=== PATIENT | male | born 1945 | race Caucasian/White ===

== ENCOUNTER 2018-01-23 06:14 | Inpatient (IN) | payer MEDICARE ==
[~2018-01-23] VITALS: Ht 172.7 cm; Wt 51.2 kg
[~2018-01-23 06:14] MED LIST: ADLT ASA LOW81 MG PO; ADVIL200 MG PO; CO Q-10200 M1 PO; DULERA1 AE1 IN; LORTAB 7.57.5 MG PO; LOSARTAN POT50 MG PO; Levaquin PO; MAG-OXIDE400 MG PO; PRAVASTATIN SOD20 MG PO; PRILOSEC40 MG PO; STERAPRED DS10 MG PO; TAMOXIFEN CITRA10 MG PO
[2018-01-23 07:17] LABS: HEMATOCRIT 36.6 % (39.0-50.0); HEMOGLOBIN 11.6 g/dl (14.0-18.0); IMMATURE GRANULOCYTES 1.4 % (0.0-1.0); MEAN CORPUSCULAR HGB 27.9 pG CALC (26.0-32.0); MEAN CORPUSCULAR HGB CONC 31.7 g/L CALC (32.0-36.0); NEUT# 17.47 thou/uL (1.82-7.42); RED BLOOD COUNT 4.16 mill/uL (4.70-6.10); RED CELL DISTRI WIDTH 15.3 % (11.5-15.5)
[2018-01-23 07:38] LABS: ALBUMIN 3.8 g/dL (3.2-5.0); ALKALINE PHOSPHATASE 61 u/l (38-126); ANION GAP 19 (6-22 (CALC)); BILIRUBIN, TOTAL 0.8 mg/dL (0.0-1.4); BUN 12 mg/dL (8-23); BUN/CREATININE RATIO 18 (12-20 (CALC)); CARBON DIOXIDE 26 mmol/l (22-30); CHLORIDE 92 mmol/l (95-108); CREATININE 0.6 mg/dL (0.7-1.3); GFR > 60 ML/MIN (>=60 (CALC)); GFR FOR AFR.AMER. > 60 ML/MIN (>=60 (CALC)); POTASSIUM 4.9 mmol/l (3.5-5.1); SGOT/AST 27 u/l (19-48); SGPT/ALT 34 u/l (11-66); SODIUM 132 mmol/l (137-146); TOTAL PROTEIN 6.9 g/dL (6.3-8.2)
[2018-01-23 07:50] LABS: MYOGLOBIN 86 ng/mL (0 - 121)
[2018-01-23 07:57] LABS: URINE BILIRUBIN - DIPSTICK NEGATIVE (NEGATIVE); URINE BLOOD DIPSTICK NEGATIVE (NEGATIVE); URINE COLOR YELLOW; URINE GLUCOSE - DIPSTICK NEGATIVE (NEGATIVE); URINE KETONE TRACE mg/dL (NEGATIVE); URINE LEUK ESTERASE NEGATIVE (NEGATIVE); URINE NITRITE - DIPSTICK NEGATIVE (Negative); URINE PH 7.5 (4.5-8.0); URINE PROTEIN - DIPSTICK NEGATIVE (NEG-TRACE); URINE UROBILINOGEN - DIPSTICK 0.2 E.U./dL (0.2)
[2018-01-23 07:59] LABS: URINE CLARITY CLEAR
[2018-01-23 08:02] LABS: INFLUENZA A NONE DETECTED (NONE DETECT); INFLUENZA B NONE DETECTED (NONE DETECT)
[2018-01-23 09:17] VITALS: BP 106/70
[2018-01-23 11:00] VITALS: BP 100/65
[2018-01-23 16:30] VITALS: BP 100/66
[2018-01-23 19:37] VITALS: BP 114/71
[2018-01-24 00:02] VITALS: BP 118/66
[2018-01-24 04:30] VITALS: BP 112/66
[2018-01-24 05:29] LABS: HEMATOCRIT 34.1 % (39.0-50.0); HEMOGLOBIN 10.9 g/dl (14.0-18.0); IMMATURE GRANULOCYTES 1.2 % (0.0-1.0); MEAN CELL VOLUME 88.3 fL CALC (80.0-100.0); MEAN CORPUSCULAR HGB 28.2 pG CALC (26.0-32.0); NEUT# 16.41 thou/uL (1.82-7.42); RED BLOOD COUNT 3.86 mill/uL (4.70-6.10); RED CELL DISTRI WIDTH 15.4 % (11.5-15.5)
[2018-01-24 05:38] LABS: ANION GAP 15 (6-22 (CALC)); BUN 12 mg/dL (8-23); BUN/CREATININE RATIO 21 (12-20 (CALC)); CARBON DIOXIDE 27 mmol/l (22-30); CHLORIDE 98 mmol/l (95-108); CREATININE 0.6 mg/dL (0.7-1.3); GFR > 60 ML/MIN (>=60 (CALC)); GFR FOR AFR.AMER. > 60 ML/MIN (>=60 (CALC)); MAGNESIUM 1.9 mg/dL (1.6-2.3); POTASSIUM 4.7 mmol/l (3.5-5.1); SODIUM 135 mmol/l (137-146)
[2018-01-24 08:11] VITALS: BP 97/64
[2018-01-24 11:00] VITALS: BP 103/64
[2018-01-24 16:36] VITALS: BP 110/50
[2018-01-24 19:25] VITALS: BP 100/61
[2018-01-25 00:15] VITALS: BP 100/69
[2018-01-25 00:20] VITALS: BP 100/69
[2018-01-25 04:44] VITALS: BP 113/72
[2018-01-25 07:53] LABS: ANION GAP 12 (6-22 (CALC)); BUN 14 mg/dL (8-23); BUN/CREATININE RATIO 26 (12-20 (CALC)); CARBON DIOXIDE 30 mmol/l (22-30); CHLORIDE 99 mmol/l (95-108); CREATININE 0.5 mg/dL (0.7-1.3); GFR > 60 ML/MIN (>=60 (CALC)); GFR FOR AFR.AMER. > 60 ML/MIN (>=60 (CALC)); POTASSIUM 4.3 mmol/l (3.5-5.1); SODIUM 137 mmol/l (137-146)
[2018-01-25 07:59] LABS: HEMATOCRIT 33.9 % (39.0-50.0); HEMOGLOBIN 10.7 g/dl (14.0-18.0); MEAN CORPUSCULAR HGB 28.1 pG CALC (26.0-32.0); MEAN CORPUSCULAR HGB CONC 31.6 g/L CALC (32.0-36.0); RED BLOOD COUNT 3.81 mill/uL (4.70-6.10); RED CELL DISTRI WIDTH 15.4 % (11.5-15.5)
[2018-01-25 08:00] VITALS: BP 111/67
[2018-01-25 11:09] VITALS: BP 100/63
[2018-01-25] MEDS ORDERED: FLORASTOR250 M1 PO (12:38)
[2018-01-25] MEDS ORDERED: AUGMENTIN500TAB PO (12:38)
[2018-01-25] MEDS ORDERED: DOXYCYCL HYC100 MG PO (12:38)
[2018-01-25] MEDS ORDERED: PREDNISONE10 MG PO (12:38)
[2018-01-25] MEDS ORDERED: LIBRIUM25 M1 PO (12:43)
== END 2018-01-25 13:26 | disposition home or self-care (01) | DRG 190 ==
LOC: ED 06:14 → ED-I 08:16 → ED 08:26 → MS2 08:27 → UNDODEPER 09:05 → MS2 01-25 13:26
PROVIDERS: Emergency Medicine; Family Medicine; Nurse Practitioner Family; ADMIT Internal Medicine; ATTEND Internal Medicine
DX: J44.1 Chronic obstructive pulmonary disease with (acute) exacerbation (principal); J18.9 Pneumonia, unspecified organism; E46 Unspecified protein-calorie malnutrition; R64 Cachexia; Z99.81 Dependence on supplemental oxygen; E87.1 Hypo-osmolality and hyponatremia; Z68.1 Body mass index [BMI] 19.9 or less, adult; J44.0 Chronic obstructive pulmonary disease with (acute) lower respiratory infection; I10 Essential (primary) hypertension; E78.5 Hyperlipidemia, unspecified; G89.4 Chronic pain syndrome; F10.10 Alcohol abuse, uncomplicated; R45.1 Restlessness and agitation; Z90.11 Acquired absence of right breast and nipple; Z85.3 Personal history of malignant neoplasm of breast; Z87.891 Personal history of nicotine dependence

== ENCOUNTER 2018-03-25 10:09 | Observation (INO) | payer MEDICARE ==
[~2018-03-25] VITALS: Ht 172.7 cm; Wt 48.0 kg
[~2018-03-25 10:09] MED LIST changes: +AUGMENTIN500TAB PO; +DOXYCYCL HYC100 MG PO; +FLORASTOR250 M1 PO; +LIBRIUM25 M1 PO; +PREDNISONE10 MG PO
[2018-03-25 10:56] LABS: HEMATOCRIT 37.5 % (39.0-50.0); HEMOGLOBIN 11.4 g/dl (14.0-18.0); IMMATURE GRANULOCYTES 0.4 % (0.0-1.0); MEAN CELL VOLUME 84.3 fL CALC (80.0-100.0); MEAN CORPUSCULAR HGB 25.6 pG CALC (26.0-32.0); MEAN CORPUSCULAR HGB CONC 30.4 g/L CALC (32.0-36.0); NEUT# 14.11 thou/uL (1.82-7.42); RED BLOOD COUNT 4.45 mill/uL (4.70-6.10); RED CELL DISTRI WIDTH 16.1 % (11.5-15.5)
[2018-03-25 11:26] LABS: ALKALINE PHOSPHATASE 61 u/l (38-126); AMYLASE 158 u/l (30-110); ANION GAP 14 (6-22 (CALC)); BILIRUBIN, TOTAL 0.7 mg/dL (0.0-1.4); BUN 13 mg/dL (8-23); BUN/CREATININE RATIO 23 (12-20 (CALC)); CARBON DIOXIDE 28 mmol/l (22-30); CHLORIDE 94 mmol/l (95-108); CREATININE 0.6 mg/dL (0.7-1.3); GFR > 60 ML/MIN (>=60 (CALC)); GFR FOR AFR.AMER. > 60 ML/MIN (>=60 (CALC)); LIPASE 99 u/l (23-300); POTASSIUM 4.7 mmol/l (3.5-5.1); SGPT/ALT 34 u/l (11-66); SODIUM 131 mmol/l (137-146)
[2018-03-25 11:31] LABS: ACT PARTIAL THROMBO TIME 24.3 SECONDS (20.0-32.5); D-DIMER 0.79 mg/L (0.19-0.60); INTERNATIONAL NORMALIZED RATIO 0.9 RATIO (0.7-1.3); PROTHROMBIN TIME 10.1 SECONDS (9.0-12.5)
[2018-03-25 11:38] LABS: MYOGLOBIN 73 ng/mL (0 - 121)
[2018-03-25 11:45] LABS: ALBUMIN 4.7 g/dL (3.2-5.0); SGOT/AST 54 u/l (19-48); TOTAL PROTEIN 8.8 g/dL (6.3-8.2)
[2018-03-25 15:43] LABS: URINE BILIRUBIN - DIPSTICK NEGATIVE (NEGATIVE); URINE BLOOD DIPSTICK NEGATIVE (NEGATIVE); URINE COLOR YELLOW; URINE GLUCOSE - DIPSTICK NEGATIVE (NEGATIVE); URINE KETONE NEGATIVE (NEGATIVE); URINE LEUK ESTERASE NEGATIVE (NEGATIVE); URINE NITRITE - DIPSTICK NEGATIVE (Negative); URINE PROTEIN - DIPSTICK NEGATIVE (NEG-TRACE); URINE SPECIFIC GRAVITY <=1.005; URINE UROBILINOGEN - DIPSTICK 0.2 E.U./dL (0.2)
[2018-03-25 15:44] LABS: URINE CLARITY CLEAR
[2018-03-25 15:54] VITALS: BP 136/79
[2018-03-25] MEDS ORDERED: ARNUITY EL200 MCG/AC IN (16:44)
[2018-03-25] MEDS ORDERED: BREO ELLIPTA1 INH PO (16:46)
[2018-03-25] MEDS ORDERED: XOPENEX HF45 MCG/ACT PO (16:47)
[2018-03-25 19:30] VITALS: BP 111/67
[2018-03-26] VITALS (7 sets, daily range): BP systolic 79–115; BP diastolic 53–71
[2018-03-26 05:25] LABS: HEMATOCRIT 34.7 % (39.0-50.0); HEMOGLOBIN 10.8 g/dl (14.0-18.0); IMMATURE GRANULOCYTES 0.6 % (0.0-1.0); MEAN CELL VOLUME 82.8 fL CALC (80.0-100.0); MEAN CORPUSCULAR HGB 25.8 pG CALC (26.0-32.0); MEAN CORPUSCULAR HGB CONC 31.1 g/L CALC (32.0-36.0); NEUT# 5.78 thou/uL (1.82-7.42); RED BLOOD COUNT 4.19 mill/uL (4.70-6.10); RED CELL DISTRI WIDTH 15.8 % (11.5-15.5)
[2018-03-26 05:36] LABS: ANION GAP 10 (6-22 (CALC)); BUN 12 mg/dL (8-23); BUN/CREATININE RATIO 25 (12-20 (CALC)); CARBON DIOXIDE 30 mmol/l (22-30); CHLORIDE 95 mmol/l (95-108); CREATININE 0.5 mg/dL (0.7-1.3); GFR > 60 ML/MIN (>=60 (CALC)); GFR FOR AFR.AMER. > 60 ML/MIN (>=60 (CALC)); MAGNESIUM 1.7 mg/dL (1.6-2.3); SODIUM 130 mmol/l (137-146)
[2018-03-27 04:29] VITALS: BP 98/64
[2018-03-27 05:32] LABS: HEMATOCRIT 32.9 % (39.0-50.0); HEMOGLOBIN 10.3 g/dl (14.0-18.0); IMMATURE GRANULOCYTES 0.5 % (0.0-1.0); MEAN CELL VOLUME 83.1 fL CALC (80.0-100.0); MEAN CORPUSCULAR HGB CONC 31.3 g/L CALC (32.0-36.0); NEUT# 9.03 thou/uL (1.82-7.42); RED BLOOD COUNT 3.96 mill/uL (4.70-6.10); RED CELL DISTRI WIDTH 15.8 % (11.5-15.5)
[2018-03-27 05:44] LABS: ANION GAP 11 (6-22 (CALC)); BUN 12 mg/dL (8-23); BUN/CREATININE RATIO 25 (12-20 (CALC)); CARBON DIOXIDE 30 mmol/l (22-30); CHLORIDE 95 mmol/l (95-108); CREATININE 0.5 mg/dL (0.7-1.3); GFR > 60 ML/MIN (>=60 (CALC)); GFR FOR AFR.AMER. > 60 ML/MIN (>=60 (CALC)); MAGNESIUM 1.6 mg/dL (1.6-2.3); POTASSIUM 4.5 mmol/l (3.5-5.1); SODIUM 132 mmol/l (137-146)
[2018-03-27 07:58] VITALS: BP 122/60
[2018-03-27 11:58] VITALS: BP 185/85
[2018-03-27] MEDS ORDERED: PREDNISONE10 MG PO (12:37)
[2018-03-27] MEDS ORDERED: LEXAPRO10 MG PO (12:37)
[2018-03-27] MEDS ORDERED: Levaquin PO (12:37)
== END 2018-03-27 14:06 | disposition home or self-care (01) ==
LOC: ED 10:09 → ED-I 13:07 → ED 13:31 → MS2 13:32
PROVIDERS: Nurse Practitioner Family; ADMIT Internal Medicine; ATTEND Internal Medicine
DX: J44.1 Chronic obstructive pulmonary disease with (acute) exacerbation (principal); R07.9 Chest pain, unspecified; Z68.1 Body mass index [BMI] 19.9 or less, adult; I10 Essential (primary) hypertension; E78.5 Hyperlipidemia, unspecified; G89.4 Chronic pain syndrome; F43.21 Adjustment disorder with depressed mood; M62.59 Muscle wasting and atrophy, not elsewhere classified, multiple sites; F10.10 Alcohol abuse, uncomplicated; E87.1 Hypo-osmolality and hyponatremia; R63.4 Abnormal weight loss; R07.2 Precordial pain; Z85.3 Personal history of malignant neoplasm of breast; Z99.81 Dependence on supplemental oxygen; Z63.4 Disappearance and death of family member
CPT/HCPCS: Q9967

== ENCOUNTER → 2018-07-10 | Outpatient (REF) | payer MEDICARE ==
[~2018-07-10] MED LIST changes: +ACIDOPHILUS1 CAP PO; +AMIODARONE200 MG PO; +ARNUITY EL200 MCG/AC IN; +ASPIRIN ADULT L81 MG PO; +BACTRIM DS1 TAB PO; +BREO ELLIPTA1 INH PO; +DIGOXIN0.125 MG PO; +LEXAPRO10 MG PO; +LIPITOR20 M1 PO; +MAGNESIUM400 MG PO; +PRAMIPEXOLE0.25 MG PO; +PRILOSEC20 MG/CAP PO; +VIBRAMYCIN100 M2 PO; +XOPENEX HF45 MCG/ACT PO
== END | disposition home or self-care (01) ==
LOC: LABSPEC 13:50
PROVIDERS: ATTEND Internal Medicine Critical Care Medicine
DX: R05 Cough (principal)

== ENCOUNTER → 2018-07-11 | Outpatient (REF) | payer MEDICARE | END | disposition home or self-care (01) | LOC: LABSPEC 11:05 | PROVIDERS: ATTEND Internal Medicine Critical Care Medicine | DX: R05 Cough (principal) ==

== ENCOUNTER → 2018-07-12 | Outpatient (REF) | payer MEDICARE | END | disposition home or self-care (01) | LOC: CT 10:33 | PROVIDERS: ATTEND Internal Medicine Critical Care Medicine | DX: J44.0 Chronic obstructive pulmonary disease with (acute) lower respiratory infection (principal); R05 Cough; R06.00 Dyspnea, unspecified ==

== ENCOUNTER → 2018-07-17 | Outpatient (REF) | payer MEDICARE | END | disposition home or self-care (01) | LOC: LABSPEC 11:28 | PROVIDERS: ATTEND Internal Medicine | DX: Z51.81 Encounter for therapeutic drug level monitoring (principal); Z79.899 Other long term (current) drug therapy ==

== ENCOUNTER 2018-10-09 20:08 | Emergency (ER) | payer MEDICARE ==
[~2018-10-09] VITALS: Ht 172.7 cm; Wt 54.0 kg
[2018-10-09 20:48] LABS: IMMATURE GRANULOCYTES 0.4 % (0.0-5.0); MEAN CORPUSCULAR HGB 21.6 pG CALC (26.0-32.0); MEAN CORPUSCULAR HGB CONC 27.3 g/L CALC (32.0-36.0); NEUT# 8.95 thou/uL (1.82-7.42); RED BLOOD COUNT 3.28 mill/uL (4.70-6.10); RED CELL DISTRI WIDTH 16.2 % (11.5-15.5)
[2018-10-09 20:54] LABS: HEMOGLOBIN 7.1 g/dl (14.0-18.0); MEAN CELL VOLUME 79.3 fL CALC (80.0-100.0)
[2018-10-09 20:59] LABS: ALBUMIN 3.8 g/dL (3.2-5.0); ALKALINE PHOSPHATASE 54 u/l (38-126); ANION GAP 13 (6-22 (CALC)); BILIRUBIN, TOTAL 0.3 mg/dL (0.0-1.4); BUN 24 mg/dL (8-23); BUN/CREATININE RATIO 33 (12-20 (CALC)); CARBON DIOXIDE 33 mmol/l (22-30); CHLORIDE 97 mmol/l (95-108); CREATININE 0.7 mg/dL (0.7-1.3); GFR > 60 ML/MIN (>=60 (CALC)); GFR FOR AFR.AMER. > 60 ML/MIN (>=60 (CALC)); SGOT/AST 37 u/l (19-48); SODIUM 138 mmol/l (137-146); TOTAL PROTEIN 6.3 g/dL (6.3-8.2)
[2018-10-09] MEDS ORDERED: PREDNISONE50 MG PO (22:00)
--- NOTE | 2018-10-09 22:07 | NUR ---
BREATHING TREATMENT GIVEN BACK TO BACK WITH MOUTH PEICE. BREATHING TECH. FOR GOOD DEPOSITION TO THE LUNGS.
[2018-10-09 22:46] VITALS: BP 135/56
[2018-10-10] MEDS ORDERED: ALBUTEROL SUL0.083 % IN (09:48)
[2018-10-10] MEDS ORDERED: BREO ELLIPTA1 INH IN (09:49)
== END 2018-10-09 22:46 | disposition home or self-care (01) ==
LOC: ED 20:08
PROVIDERS: Family Medicine
DX: J44.1 Chronic obstructive pulmonary disease with (acute) exacerbation (principal); R06.02 Shortness of breath; I10 Essential (primary) hypertension

== ENCOUNTER 2018-12-01 20:17 | Emergency (ER) | payer MEDICARE ==
[~2018-12-01] VITALS: Ht 172.7 cm; Wt 52.0 kg
[~2018-12-01 20:17] MED LIST changes: +ALBUTEROL SUL0.083 % IN; +BREO ELLIPTA1 INH IN; +PREDNISONE50 MG PO
[2018-12-01] MEDS ORDERED: MAPAP325 MG PO (20:35)
[2018-12-01] MEDS ORDERED: TUSSIN AC PO (20:37)
[2018-12-01] MEDS ORDERED: CLONAZEPAM0.5 M1 PO (20:37)
[2018-12-01] MEDS ORDERED: SENNA-S1 TAB PO (20:38)
[2018-12-01] MEDS ORDERED: MORPHINE S20 MG/5 M1 PO (20:42)
[2018-12-01 20:50] LABS: HEMATOCRIT 29.9 % (39.0-50.0); HEMOGLOBIN 8.4 g/dl (14.0-18.0); IMMATURE GRANULOCYTES 0.9 % (0.0-5.0); MEAN CORPUSCULAR HGB 23.7 pG CALC (26.0-32.0); MEAN CORPUSCULAR HGB CONC 28.1 g/L CALC (32.0-36.0); NEUT# 10.45 thou/uL (1.82-7.42); RED BLOOD COUNT 3.54 mill/uL (4.70-6.10); RED CELL DISTRI WIDTH 20.4 % (11.5-15.5)
[2018-12-01 20:51] LABS: MEAN CELL VOLUME 84.5 fL CALC (80.0-100.0)
[2018-12-01 21:02] LABS: ALBUMIN 3.3 g/dL (3.2-5.0); ALKALINE PHOSPHATASE 62 u/l (38-126); ANION GAP 11 (6-22 (CALC)); BILIRUBIN, TOTAL 0.3 mg/dL (0.0-1.4); BUN 18 mg/dL (8-23); BUN/CREATININE RATIO 28 (12-20 (CALC)); CARBON DIOXIDE 33 mmol/l (22-30); CHLORIDE 96 mmol/l (95-108); CREATININE 0.6 mg/dL (0.7-1.3); GFR > 60 ML/MIN (>=60 (CALC)); GFR FOR AFR.AMER. > 60 ML/MIN (>=60 (CALC)); INTERNATIONAL NORMALIZED RATIO 0.9 RATIO (0.7-1.3); POTASSIUM 4.6 mmol/l (3.5-5.1); PROTHROMBIN TIME 9.9 SECONDS (9.0-12.5); SGOT/AST 23 u/l (19-48); SODIUM 136 mmol/l (137-146); TOTAL PROTEIN 5.7 g/dL (6.3-8.2)
[2018-12-01 21:38] LABS: URINE BILIRUBIN - DIPSTICK NEGATIVE (NEGATIVE); URINE BLOOD DIPSTICK NEGATIVE (NEGATIVE); URINE COLOR YELLOW; URINE GLUCOSE - DIPSTICK NEGATIVE (NEGATIVE); URINE KETONE NEGATIVE (NEGATIVE); URINE LEUK ESTERASE NEGATIVE (NEGATIVE); URINE NITRITE - DIPSTICK NEGATIVE (Negative); URINE PROTEIN - DIPSTICK NEGATIVE (NEG-TRACE); URINE SPECIFIC GRAVITY 1.025; URINE UROBILINOGEN - DIPSTICK 0.2 E.U./dL (0.2)
[2018-12-01] MEDS ORDERED: DUONEB IN (21:40)
[2018-12-01] MEDS ORDERED: SYMBICORT1 AE1 IN (21:42)
[2018-12-01] MEDS ORDERED: ESCITALOPRAM OXA5 MG PO (21:45)
[2018-12-01] MEDS ORDERED: TAMOXIFEN CITRA20 MG PO (21:47)
[2018-12-01] MEDS ORDERED: PREDNISONE20 MG PO (21:48)
[2018-12-01] MEDS ORDERED: CORDARONE/200 MG/TAB PO (21:49)
[2018-12-01] MEDS ORDERED: AMIODARONE HCL200 MG PO (21:51)
[2018-12-01] MEDS ORDERED: PROCHLORPERAZIN10 MG PO (21:54)
[2018-12-01 22:38] VITALS: BP 157/70
== END 2018-12-01 22:38 | disposition short-term general hospital (02) ==
LOC: ED 20:17
PROVIDERS: Emergency Medicine
DX: S72.012A Unspecified intracapsular fracture of left femur, initial encounter for closed fracture (principal); D64.9 Anemia, unspecified; I10 Essential (primary) hypertension; J44.9 Chronic obstructive pulmonary disease, unspecified; M19.90 Unspecified osteoarthritis, unspecified site; W01.0XXA Fall on same level from slipping, tripping and stumbling without subsequent striking against object, initial encounter; Y92.009 Unspecified place in unspecified non-institutional (private) residence as the place of occurrence of the external cause; Z99.81 Dependence on supplemental oxygen

== ENCOUNTER 2018-12-28 23:50 | Emergency (ER) | payer MEDICARE ==
[~2018-12-28] VITALS: Ht 172.7 cm; Wt 53.0 kg
[~2018-12-28 23:50] MED LIST changes: +AMIODARONE HCL200 MG PO; +CLONAZEPAM0.5 M1 PO; +CORDARONE/200 MG/TAB PO; +DUONEB IN; +ESCITALOPRAM OXA5 MG PO; +MAPAP325 MG PO; +MORPHINE S20 MG/5 M1 PO; +PREDNISONE20 MG PO; +PROCHLORPERAZIN10 MG PO; +SENNA-S1 TAB PO; +SYMBICORT1 AE1 IN; +TAMOXIFEN CITRA20 MG PO; +TUSSIN AC PO
[2018-12-29 00:40] LABS: HEMATOCRIT 29.2 % (39.0-50.0); HEMOGLOBIN 8.5 g/dl (14.0-18.0); IMMATURE GRANULOCYTES 3.6 % (0.0-5.0); MEAN CELL VOLUME 83.9 fL CALC (80.0-100.0); MEAN CORPUSCULAR HGB 24.4 pG CALC (26.0-32.0); MEAN CORPUSCULAR HGB CONC 29.1 g/L CALC (32.0-36.0); NEUT# 12.4 thou/uL (1.82-7.42); RED BLOOD COUNT 3.48 mill/uL (4.70-6.10); RED CELL DISTRI WIDTH 18.6 % (11.5-15.5)
[2018-12-29 00:57] LABS: URINE BILIRUBIN - DIPSTICK NEGATIVE (NEGATIVE); URINE BLOOD DIPSTICK NEGATIVE (NEGATIVE); URINE COLOR YELLOW; URINE GLUCOSE - DIPSTICK NEGATIVE (NEGATIVE); URINE KETONE NEGATIVE (NEGATIVE); URINE LEUK ESTERASE NEGATIVE (NEGATIVE); URINE NITRITE - DIPSTICK NEGATIVE (Negative); URINE PROTEIN - DIPSTICK NEGATIVE (NEG-TRACE); URINE SPECIFIC GRAVITY <=1.005; URINE UROBILINOGEN - DIPSTICK 0.2 E.U./dL (0.2)
[2018-12-29 00:59] LABS: ACT PARTIAL THROMBO TIME 25.6 SECONDS (20.0-32.5); PROTHROMBIN TIME 10.2 SECONDS (9.0-12.5)
[2018-12-29 01:05] LABS: ALBUMIN 3.3 g/dL (3.2-5.0); ALKALINE PHOSPHATASE 92 u/l (38-126); BILIRUBIN, TOTAL 0.6 mg/dL (0.0-1.4); BUN 11 mg/dL (8-23); BUN/CREATININE RATIO 17 (12-20 (CALC)); CARBON DIOXIDE 28 mmol/l (22-30); CHLORIDE 90 mmol/l (95-108); CREATININE 0.7 mg/dL (0.7-1.3); GFR > 60 ML/MIN (>=60 (CALC)); GFR FOR AFR.AMER. > 60 ML/MIN (>=60 (CALC)); POTASSIUM 4.6 mmol/l (3.5-5.1)
[2018-12-29 01:15] LABS: ANION GAP 16 (6-22 (CALC)); SGOT/AST 47 u/l (19-48); SODIUM 129 mmol/l (137-146)
[2018-12-29 02:02] VITALS: BP 125/57
== END 2018-12-29 02:02 | disposition short-term general hospital (02) ==
LOC: ED 23:50
PROVIDERS: Emergency Medicine
DX: S79.002A Unspecified physeal fracture of upper end of left femur, initial encounter for closed fracture (principal); M97.02XA Periprosthetic fracture around internal prosthetic left hip joint, initial encounter; D64.9 Anemia, unspecified; E87.1 Hypo-osmolality and hyponatremia; I10 Essential (primary) hypertension; W19.XXXA Unspecified fall, initial encounter

== ENCOUNTER 2019-01-08 23:22 | Emergency (ER) | payer MEDICARE ==
[~2019-01-08] VITALS: Ht 172.7 cm; Wt 51.0 kg
[2019-01-09 00:02] LABS: HEMATOCRIT 25.4 % (39.0-50.0); HEMOGLOBIN 7.6 g/dl (14.0-18.0); MEAN CELL VOLUME 87.6 fL CALC (80.0-100.0); MEAN CORPUSCULAR HGB 26.2 pG CALC (26.0-32.0); MEAN CORPUSCULAR HGB CONC 29.9 g/L CALC (32.0-36.0); NEUT# 13.97 thou/uL (1.82-7.42); RED BLOOD COUNT 2.9 mill/uL (4.70-6.10); RED CELL DISTRI WIDTH 18.5 % (11.5-15.5)
[2019-01-09 00:08] LABS: ALKALINE PHOSPHATASE 88 u/l (38-126); ANION GAP 8 (6-22 (CALC)); BILIRUBIN, TOTAL 0.4 mg/dL (0.0-1.4); BUN 18 mg/dL (8-23); BUN/CREATININE RATIO 34 (12-20 (CALC)); CARBON DIOXIDE 30 mmol/l (22-30); CHLORIDE 99 mmol/l (95-108); CREATININE 0.5 mg/dL (0.7-1.3); GFR > 60 ML/MIN (>=60 (CALC)); GFR FOR AFR.AMER. > 60 ML/MIN (>=60 (CALC)); POTASSIUM 4.4 mmol/l (3.5-5.1); SGOT/AST 24 u/l (19-48); SODIUM 132 mmol/l (137-146)
[2019-01-09 00:09] LABS: ALBUMIN 2.4 g/dL (3.2-5.0); TOTAL PROTEIN 4.6 g/dL (6.3-8.2)
[2019-01-09 00:15] LABS: PROTHROMBIN TIME 10.6 SECONDS (9.0-12.5)
[2019-01-09] MEDS ORDERED: BREO ELLIPTA1 INH IN (01:34)
[2019-01-09] MEDS ORDERED: MULTIVITAMI9 PO (01:35)
[2019-01-09] MEDS ORDERED: D 10001000 UNIT PO (01:36)
[2019-01-09] MEDS ORDERED: PRILOSEC20 MG PO (01:36)
[2019-01-09] MEDS ORDERED: DELTASONE20 MG PO (01:38)
[2019-01-09] MEDS ORDERED: SPIRIVA RE1.25 MCG/A IN (01:39)
[2019-01-09] MEDS ORDERED: CALCIUM CITRAT950 MG PO (01:40)
[2019-01-09] MEDS ORDERED: KEFLEX500 MG PO (01:41)
[2019-01-09] MEDS ORDERED: MORPHINE SULFAT30 M1 PO (01:42)
[2019-01-09] MEDS ORDERED: NAPROXEN500 MG PO (01:43)
[2019-01-09 03:00] VITALS: BP 101/56
== END 2019-01-09 03:54 | disposition home or self-care (01) ==
LOC: ED 23:22
PROVIDERS: Emergency Medicine
DX: L76.22 Postprocedural hemorrhage of skin and subcutaneous tissue following other procedure (principal); I10 Essential (primary) hypertension; J44.9 Chronic obstructive pulmonary disease, unspecified; S72.92XD Unspecified fracture of left femur, subsequent encounter for closed fracture with routine healing; Y83.8 Other surgical procedures as the cause of abnormal reaction of the patient, or of later complication, without mention of misadventure at the time of the procedure; X58.XXXD Exposure to other specified factors, subsequent encounter; D72.829 Elevated white blood cell count, unspecified; T38.0X5A Adverse effect of glucocorticoids and synthetic analogues, initial encounter; D64.9 Anemia, unspecified

== ENCOUNTER 2019-01-12 09:54 | Observation (INO) | payer MEDICARE ==
[~2019-01-12] VITALS: Ht 166.4 cm; Wt 50.0 kg
[~2019-01-12 09:54] MED LIST changes: +CALCIUM CITRAT950 MG PO; +D 10001000 UNIT PO; +DELTASONE20 MG PO; +KEFLEX500 MG PO; +MORPHINE SULFAT30 M1 PO; +MULTIVITAMI9 PO; +NAPROXEN500 MG PO; +PRILOSEC20 MG PO; +SPIRIVA RE1.25 MCG/A IN
[2019-01-12] MEDS ORDERED: CITALOPRAM10 MG PO (10:30)
[2019-01-12 10:57] LABS: IMMATURE GRANULOCYTES 0.7 % (0.0-5.0); MEAN CELL VOLUME 86.8 fL CALC (80.0-100.0); MEAN CORPUSCULAR HGB CONC 31.1 g/L CALC (32.0-36.0); NEUT# 15.7 thou/uL (1.82-7.42); RED BLOOD COUNT 3.85 mill/uL (4.70-6.10); RED CELL DISTRI WIDTH 17.3 % (11.5-15.5)
[2019-01-12 10:58] LABS: HEMATOCRIT 33.4 % (39.0-50.0); HEMOGLOBIN 10.4 g/dl (14.0-18.0)
[2019-01-12 11:11] LABS: ANION GAP 12 (6-22 (CALC)); BUN 13 mg/dL (8-23); BUN/CREATININE RATIO 24 (12-20 (CALC)); CARBON DIOXIDE 30 mmol/l (22-30); CHLORIDE 91 mmol/l (95-108); CREATININE 0.5 mg/dL (0.7-1.3); GFR > 60 ML/MIN (>=60 (CALC)); GFR FOR AFR.AMER. > 60 ML/MIN (>=60 (CALC)); POTASSIUM 4.8 mmol/l (3.5-5.1); SODIUM 128 mmol/l (137-146)
[2019-01-12 13:27] VITALS: BP 141/58
[2019-01-12 15:15] VITALS: BP 93/52
[2019-01-12 16:29] VITALS: BP 107/60
[2019-01-12 16:30] LABS: URINE BILIRUBIN - DIPSTICK NEGATIVE (NEGATIVE); URINE BLOOD DIPSTICK NEGATIVE (NEGATIVE); URINE COLOR YELLOW; URINE GLUCOSE - DIPSTICK NEGATIVE (NEGATIVE); URINE KETONE NEGATIVE (NEGATIVE); URINE LEUK ESTERASE NEGATIVE (NEGATIVE); URINE NITRITE - DIPSTICK NEGATIVE (Negative); URINE PH 8.5 (4.5-8.0); URINE PROTEIN - DIPSTICK NEGATIVE (NEG-TRACE); URINE SPECIFIC GRAVITY 1.015; URINE UROBILINOGEN - DIPSTICK 0.2 E.U./dL (0.2)
[2019-01-12 19:15] VITALS: BP 107/86
[2019-01-13] VITALS (7 sets, daily range): BP systolic 90–157; BP diastolic 52–62
[2019-01-13 05:39] LABS: HEMATOCRIT 33.7 % (39.0-50.0); HEMOGLOBIN 9.8 g/dl (14.0-18.0); IMMATURE GRANULOCYTES 0.8 % (0.0-5.0); MEAN CELL VOLUME 90.1 fL CALC (80.0-100.0); MEAN CORPUSCULAR HGB 26.2 pG CALC (26.0-32.0); MEAN CORPUSCULAR HGB CONC 29.1 g/L CALC (32.0-36.0); NEUT# 17.69 thou/uL (1.82-7.42); RED BLOOD COUNT 3.74 mill/uL (4.70-6.10); RED CELL DISTRI WIDTH 17.4 % (11.5-15.5)
[2019-01-13 06:06] LABS: ALBUMIN 2.5 g/dL (3.2-5.0); ALKALINE PHOSPHATASE 70 u/l (38-126); AMYLASE 43 u/l (30-110); ANION GAP 12 (6-22 (CALC)); BILIRUBIN, TOTAL 0.6 mg/dL (0.0-1.4); BUN 13 mg/dL (8-23); BUN/CREATININE RATIO 28 (12-20 (CALC)); CARBON DIOXIDE 26 mmol/l (22-30); CHLORIDE 93 mmol/l (95-108); CREATININE 0.5 mg/dL (0.7-1.3); GFR > 60 ML/MIN (>=60 (CALC)); GFR FOR AFR.AMER. > 60 ML/MIN (>=60 (CALC)); LIPASE 24 u/l (23-300); MAGNESIUM 1.6 mg/dL (1.6-2.3); POTASSIUM 4.4 mmol/l (3.5-5.1); SGOT/AST 31 u/l (19-48); SODIUM 127 mmol/l (137-146); TOTAL PROTEIN 4.8 g/dL (6.3-8.2)
[2019-01-14 04:52] VITALS: BP 153/69
[2019-01-14 08:13] VITALS: BP 90/50
[2019-01-14 11:14] VITALS: BP 100/64
[2019-01-14] MEDS ORDERED: CORDARONE/PACE100 MG PO (12:52)
[2019-01-14 16:00] VITALS: BP 98/56
[2019-01-14 19:11] VITALS: BP 133/51
[2019-01-15 00:24] VITALS: BP 153/71
[2019-01-15 04:00] VITALS: BP 143/69
[2019-01-15 05:42] LABS: HEMATOCRIT 29.2 % (39.0-50.0); HEMOGLOBIN 9.1 g/dl (14.0-18.0); IMMATURE GRANULOCYTES 0.8 % (0.0-5.0); MEAN CELL VOLUME 86.9 fL CALC (80.0-100.0); MEAN CORPUSCULAR HGB 27.1 pG CALC (26.0-32.0); MEAN CORPUSCULAR HGB CONC 31.2 g/L CALC (32.0-36.0); NEUT# 14.56 thou/uL (1.82-7.42); RED BLOOD COUNT 3.36 mill/uL (4.70-6.10)
[2019-01-15 05:54] LABS: ALBUMIN 2.8 g/dL (3.2-5.0); ALKALINE PHOSPHATASE 77 u/l (38-126); ANION GAP 10 (6-22 (CALC)); BILIRUBIN, TOTAL 0.6 mg/dL (0.0-1.4); BUN 12 mg/dL (8-23); BUN/CREATININE RATIO 27 (12-20 (CALC)); CARBON DIOXIDE 28 mmol/l (22-30); CHLORIDE 96 mmol/l (95-108); CREATININE 0.5 mg/dL (0.7-1.3); GFR > 60 ML/MIN (>=60 (CALC)); GFR FOR AFR.AMER. > 60 ML/MIN (>=60 (CALC)); MAGNESIUM 1.8 mg/dL (1.6-2.3); POTASSIUM 4.5 mmol/l (3.5-5.1); SGOT/AST 27 u/l (19-48); SODIUM 130 mmol/l (137-146); TOTAL PROTEIN 5.2 g/dL (6.3-8.2)
[2019-01-15 09:10] VITALS: BP 153/69
[2019-01-15 09:26] VITALS: BP 153/69
== END 2019-01-15 16:05 | disposition home health service (06) ==
LOC: ED 09:54 → ED-I 11:13 → ED 11:42 → MS2 11:43
PROVIDERS: Family Medicine; ADMIT Internal Medicine Nephrology; ATTEND Internal Medicine Nephrology
DX: J44.1 Chronic obstructive pulmonary disease with (acute) exacerbation (principal); J18.9 Pneumonia, unspecified organism; J44.0 Chronic obstructive pulmonary disease with (acute) lower respiratory infection; J96.11 Chronic respiratory failure with hypoxia; I10 Essential (primary) hypertension; I48.2 Chronic atrial fibrillation; E78.5 Hyperlipidemia, unspecified; E03.9 Hypothyroidism, unspecified; F41.1 Generalized anxiety disorder; F32.9 Major depressive disorder, single episode, unspecified; G89.4 Chronic pain syndrome; K21.9 Gastro-esophageal reflux disease without esophagitis; E46 Unspecified protein-calorie malnutrition; R53.1 Weakness; R00.2 Palpitations; Z68.1 Body mass index [BMI] 19.9 or less, adult; Z96.642 Presence of left artificial hip joint; Z79.01 Long term (current) use of anticoagulants; Z87.891 Personal history of nicotine dependence; R42 Dizziness and giddiness; R06.02 Shortness of breath

== ENCOUNTER 2019-01-16 11:34 | Emergency (ER) | payer MEDICARE ==
[~2019-01-16] VITALS: Ht 165.1 cm; Wt 56.8 kg
[~2019-01-16 11:34] MED LIST changes: +CITALOPRAM10 MG PO; +CORDARONE/PACE100 MG PO
[2019-01-16 12:53] LABS: HEMATOCRIT 29.9 % (39.0-50.0); HEMOGLOBIN 9.2 g/dl (14.0-18.0); IMMATURE GRANULOCYTES 0.7 % (0.0-5.0); MEAN CELL VOLUME 86.7 fL CALC (80.0-100.0); MEAN CORPUSCULAR HGB 26.7 pG CALC (26.0-32.0); MEAN CORPUSCULAR HGB CONC 30.8 g/L CALC (32.0-36.0); NEUT# 16.48 thou/uL (1.82-7.42); RED BLOOD COUNT 3.45 mill/uL (4.70-6.10); RED CELL DISTRI WIDTH 16.8 % (11.5-15.5)
[2019-01-16 13:10] LABS: ANION GAP 11 (6-22 (CALC)); BUN 17 mg/dL (8-23); BUN/CREATININE RATIO 36 (12-20 (CALC)); CARBON DIOXIDE 29 mmol/l (22-30); CHLORIDE 94 mmol/l (95-108); CREATININE 0.5 mg/dL (0.7-1.3); GFR > 60 ML/MIN (>=60 (CALC)); GFR FOR AFR.AMER. > 60 ML/MIN (>=60 (CALC)); POTASSIUM 3.6 mmol/l (3.5-5.1); SODIUM 130 mmol/l (137-146)
[2019-01-16 17:28] VITALS: BP 126/65
== END 2019-01-16 17:28 | disposition short-term general hospital (02) ==
LOC: ED 11:34
PROVIDERS: Family Medicine
DX: T84.021A Dislocation of internal left hip prosthesis, initial encounter (principal); Z96.642 Presence of left artificial hip joint; M25.552 Pain in left hip; R94.31 Abnormal electrocardiogram [ECG] [EKG]; Y92.009 Unspecified place in unspecified non-institutional (private) residence as the place of occurrence of the external cause; J44.9 Chronic obstructive pulmonary disease, unspecified